=== PATIENT | female | born 1975 | race African-American/Black ===

== ENCOUNTER 2019-06-21 21:38 | Emergency (ER) | payer OTHER ==
[2019-06-21] MEDS ORDERED: Ketorolac Tromethamine 30 MG/ML VIAL ONE (23:46)
== END 2019-06-22 00:44 | disposition short-term general hospital (02) ==
LOC: ERS 21:38
DX: M54.2 Cervicalgia (principal); E28.2 Polycystic ovarian syndrome; Z79.899 Other long term (current) drug therapy; V43.92XA Unspecified car occupant injured in collision with other type car in traffic accident, initial encounter
CPT/HCPCS: 96372; 99283; J1885; L0120

== ENCOUNTER 2025-04-02 08:34 | Emergency (ER) | payer BC, OTHER ==
[2025-04-02] MEDS ORDERED: Acetaminophen 500 MG TAB ONE (09:31)
== END 2025-04-02 11:17 | disposition home or self-care (01) ==
LOC: ERS 08:34
DX: M25.511 Pain in right shoulder (principal); R51.9 Headache, unspecified; V43.52XA Car driver injured in collision with other type car in traffic accident, initial encounter
CPT/HCPCS: 70450; 71046; 72100; 93005